=== PATIENT | female | born 1950 | race Caucasian/White ===

== ENCOUNTER 2018-08-31 18:07 | Emergency (ER) | payer MEDICARE ==
[2018-08-31 21:20] LABS: ABS Basophils 0 10^3/ul (0-0.2); ABS Eosinophils 0 10^3/ul (0-0.6); ABS Lymphocytes 0.7 10^3/ul (1.0-4.8); ABS Monocytes 0.2 10^3/ul (0-0.8); ABS Neutrophils 9.1 10^3/ul (1.5-7.7); ABS Nucleated RBC 0 10^3/ul; Eosinophil % 0 % (0-6); Hematocrit 43 % (35-47); Hemoglobin 14.5 g/dl (12.0-16.0); Lymphocyte % 6.6 % (25-47); Mean Corpuscular HGB Conc 34 g/dl (31-36); Mean Corpuscular Hemoglobin 34 pg (27-31); Mean Corpuscular Volume 99 fL (80-97); Mean Platelet Volume 9.3 um3 (7.4-10.4); Nucleated Red Blood Cells % 0; Platelet Count 259 10^3/ul (150-450); Red Blood Count 4.31 10^6/ul (4.00-5.40); Red Cell Distribution Width 13 % (10.5-15); White Blood Count 10.1 10^3/ul (3.5-10.8)
[2018-08-31] MEDS ORDERED: Acetaminophen TAB* 325 MG PO ONE (21:37)
[2018-08-31] MEDS ORDERED: NS 0.9% 1000 ML* 2,000 ML IV ONE (21:37)
[2018-08-31] MEDS ORDERED: Ondansetron INJ* 2 MG/ML VIAL IV ONE (21:39)
--- NOTE | 2018-08-31 21:57 | ED ---
Abdominal Pain/Female - HPI Summary HPI Summary: A 68 y/o female accompanied by her presents to ED c/o abdominal pain reaching 8/10 in severity. In the ED room, the patient has a pulse of 80 BPM, O2 saturation of 100% and blood pressure of 144/58. As per triage, "Pt reports RLQ abdominal pain that started this morning. Pt reports nausea and vomiting today as well. Pt denies pain with urination. Pt reports chills at home". According to the patient, she has been experiencing abdominal pain that was across her stomach since the morning, however, as the day karlie ton, it was localized at the RUQ. Additional symptoms include vomiting, however, denies any fever, back pain or urinary issues. Furthermore, she feels dizzy when she stands up. She noted that movement and drinking water aggravates the symptoms. No prior abdominal surgeries. No current medications. No PCP or seen at hospital for last 10 years. Patient ate breakfast, nothing rest of the day. Only wants Tylenol. - History of Current Complaint Chief Complaint: EDAbdPain Stated Complaint: ABD PAIN/VOMITING Time Seen by Provider: 08/31/18 21:07 Hx Obtained From: Patient Onset/Duration: Sudden Onset, Lasting Hours, Still Present Timing: Constant Severity Initially: Severe Severity Currently: Severe Pain Intensity: 10 Pain Scale Used: 0-10 Numeric Location: Discrete At: RUQ Radiates: No Aggravating Factor(s): Movement, Other: - Drinking water Alleviating Factor(s): Nothing Associated Signs and Symptoms: Positive: Dizzy, Decreased Appetite, Vomiting. Negative: Back Pain, Urinary Symptoms Allergies/Adverse Reactions: Allergies Allergy/AdvReac Type Severity Reaction Status Date / Time No Known Allergies Allergy Verified 08/31/18 18:31 Home Medications: Home Medications NK [No Home Medications Reported] 08/31/18 [History Confirmed 08/31/18] PMH/Surg Hx/FS Hx/Imm Hx Endocrine/Hematology History: Denies: Hx Diabetes Cardiovascular History: Denies: Hx Hypertension Respiratory History: Denies: Hx Asthma - Surgical History Surgery Procedure, Year, and Place: PER PATIENT, NO PRIOR SURGERIES NOTED Infectious Disease History: No Infectious Disease History: Denies: Traveled Outside the [place] in Last 30 Days - Family History Known Family History: Negative: Hypertension, Diabetes - Social History Alcohol Use: None Substance Use Type: Reports: None Smoking Status (MU): Never Smoked Tobacco Review of Systems Negative: Fever Positive: Abdominal Pain, Vomiting, Nausea, Other - POSITIVE: Appetite changes Positive: no symptoms reported Positive: Other - NEGATIVE: Back pain Neurological: Other - POSITIVE: Dizziness All Other Systems Reviewed And Are Negative: Yes Physical Exam - Summary Physical Exam Summary: VITAL SIGNS: Reviewed. GENERAL: Patient is a skinny female who is lying comfortable in the stretcher. Patient is not in any acute respiratory distress. Patient seems dry. HEAD AND FACE: No signs of trauma. No ecchymosis, hematomas or skull depressions. No sinus tenderness. EYES: PERRLA, EOMI x 2, No injected conjunctiva, no nystagmus. EARS: Hearing grossly intact. Ear canals and tympanic membranes are within normal limits. MOUTH: Oropharynx within normal limits. NECK: Supple, trachea is midline, no adenopathy, no JVD, no carotid bruit, no c- spine tenderness, neck with full ROM. CHEST: Symmetric, no tenderness at palpation LUNGS: Clear to auscultation bilaterally. No wheezing or crackles. CVS: Regular rate and rhythm, S1 and S2 present, no murmurs or gallops appreciated. ABDOMEN: Soft, RUQ tenderness. No signs of distention. No rebound no guarding, and no masses palpated. Bowel sounds are normal. EXTREMITIES: FROM in all major joints, no edema, no cyanosis or clubbing. NEURO: Alert and oriented x 3. No acute neurological deficits. Speech is normal and follows commands. SKIN: Dry and warm Triage Information Reviewed: Yes Vital Signs On Initial Exam: Initial Vitals Temp Pulse Resp BP Pulse Ox 99.0 F 78 18 133/57 100 08/31/18 18:28 08/31/18 18:28 08/31/18 18:28 08/31/18 18:28 08/31/18 18:28 Vital Signs Reviewed: Yes Diagnostics - Vital Signs Vital Signs Temp Pulse Resp BP Pulse Ox 08/31/18 21:17 79 100 08/31/18 21:16 75 144/58 100 08/31/18 20:49 99.6 F 73 15 122/49 100 08/31/18 18:28 99.0 F 78 18 133/57 100 - Laboratory Lab Results: Lab Results 10/10/18 10/10/18 10/10/18 Range/Units 21:09 21:09 21:09 WBC 10.1 (3.5-10.8) 10^3/ul RBC 4.31 (4.00-5.40) 10^6/ul Hgb 14.5 (12.0-16.0) g/dl Hct 43 (35-47) % MCV 99 H (80-97) fL MCH 34 H (27-31) pg MCHC 34 (31-36) g/dl RDW 13 (10.5-15) % Plt Count 259 (150-450) 10^3/ul MPV 9.3 (7.4-10.4) um3 Neut % (Auto) 90.7 H (38-83) % Lymph % (Auto) 6.6 L (25-47) % Bullitt % (Auto) 2.3 (0-7) % Eos % (Auto) 0 (0-6) % Baso % (Auto) 0.4 (0-2) % Absolute Neuts (auto) 9.1 H (1.5-7.7) 10^3/ul Absolute Lymphs (auto) 0.7 L (1.0-4.8) 10^3/ul Absolute Monos (auto) 0.2 (0-0.8) 10^3/ul Absolute Eos (auto) 0 (0-0.6) 10^3/ul Absolute Basos (auto) 0 (0-0.2) 10^3/ul Absolute Nucleated RBC 0 10^3/ul Nucleated RBC % 0 Sodium 132 L (135-145) mmol/L Potassium 3.4 L (3.5-5.0) mmol/L Chloride 99 L (101-111) mmol/L Carbon Dioxide 23 (22-32) mmol/L Anion Gap 10 (2-11) mmol/L BUN 10 (6-24) mg/dL Creatinine 0.63 (0.51-0.95) mg/dL Est GFR ( Amer) 113.7 (>60) Est GFR (Non-Af Amer) 94.0 (>60) BUN/Creatinine Ratio 15.9 (8-20) Glucose 112 H (70-100) mg/dL Lactic Acid 1.4 (0.5-2.0) mmol/L Calcium 9.5 (8.6-10.3) mg/dL Total Bilirubin 0.80 (0.2-1.0) mg/dL AST 20 (13-39) U/L ALT 17 (7-52) U/L Alkaline Phosphatase 44 (34-104) U/L C-Reactive Protein 1.34 (<8.01) mg/L Total Protein 6.8 (6.4-8.9) g/dL Albumin 4.5 (3.2-5.2) g/dL Globulin 2.3 (2-4) g/dL Albumin/Globulin Ratio 2.0 (1-3) Lipase 32 (11.0-82.0) U/L Result Diagrams: 08/31/18 21:09 08/31/18 21:09 Lab Statement: Any lab studies that have been ordered have been reviewed, and results considered in the medical decision making process. - CT CT A/P CT Interpretation Completed By: Radiologist - 1. Large cystic lesion located in the pelvis. This raises the possibility of a serous or mucinous tumor of the ovary. Suggest ultrasound evaluation or the consideration of an MRI exam. 2. No evidence of bowel obstruction. No abnormal bowel wall thickening. Portions of the appendix is visualized and is normal in appearance. ED PHYSICIAN REVIEWED THIS RADIOLOGY REPORT. - Ultrasound No standard instances Ultrasound Interpretation Completed By: Radiologist - APPENDIX US: The appendix is not visualized. ED PHYSICIAN REVIEWED THIS RADIOLOGY REPORT. Re-Evaluation - Re-Evaluation First Eval Re-Evaluation Time: 00:05 Comment: US did not visualize appendix. Pt is reluctant to do CAT scan. Abdominal Pain Fem Course/Dx - Course Course Of Treatment: A 21 y/o male presents to ED s/p substance abuse. A US revealed the appendix is not visualized. A CT A/P revealed 1. Large cystic lesion located in the pelvis. This raises the possibility of a serous or mucinous tumor of the ovary. Suggest ultrasound evaluation or the consideration of an MRI exam. 2. No evidence of bowel obstruction. No abnormal bowel wall thickening. Portions of the appendix is visualized and is normal in appearance. In the ED course, the patient recieved Tylenol, Zofran, Klor on Er Tab, Indocin and IV fluids. Patient refused CAT scan and wants to start with a US. Patient only wants Tylenol for pain. Patient was reluctant to recieve IV fluids and antianemic medications. The patient later was reluctant for CAT scan. Patient will be discharged with a diagnosis of large ovarian cyst. Patient is to follow up with [facility] tomorrow. Patient is agreeable with this plan. - Diagnoses Provider Diagnoses: Ovarian cyst Discharge - Sign-Out/Discharge Documenting (check all that apply): Patient Departure - DISCHARGE - Discharge Plan Condition: Stable Disposition: HOME Patient Education Materials: Ovarian Cyst (ED) Additional Instructions: FOLLOW UP WITH [facility] TOMORROW RETURN TO ED FOR ANY NEW OR WORSENING SYMPTOMS. - Attestation Statements Document Initiated by Scribe: Yes Documenting Scribe: Shawn Qureshi Provider For Whom Scribe is Documenting (Include Credential): Vivienne Islas MD Scribe Attestation: Shawn Van, scribed for Vivienne Islas MD on 09/01/18 at 0421.
[2018-08-31 22:24] LABS: Urine Appearance Clear; Urine Blood Negative (Negative); Urine Color Yellow; Urine Ketones 2+ (Negative); Urine Protein Negative (Negative); Urine Red Blood Cell 1+(3-5/hpf) (Absent); Urine Specific Gravity 1.019 (1.010-1.030); Urine Urobilinogen Negative (Negative); Urine White Blood Cell Trace(0-5/hpf) (Absent)
--- NOTE | 2018-08-31 23:08 | RAD ---
EXAM: US Abdomen Limited, Appendix CLINICAL HISTORY: 68 years old, female; Pain; Other: Rlq; Additional info: Apendicitis TECHNIQUE: Real-time ultrasound of the right lower quadrant with image documentation. COMPARISON: No relevant prior studies available. FINDINGS: Limitations: Study is limited due to distended bladder. Appendix: The appendix is not visualized. No right lower quadrant mass is visualized. Free fluid: No free fluid. IMPRESSION: The appendix is not visualized. To contact [facility] with a general question: Operations Center - [phone] For direct physician to physician contact: Physician Hotline - [phone] [facility] ([facility] Facility ID #[id number])
[2018-08-31] MEDS ORDERED: Potassium Chlor TAB* 20 MEQ TAB.ER PO ONE (23:59)
[2018-09-01] MEDS ORDERED: Indomethacin CAP* 50 MG PO ONE (00:04)
--- NOTE | 2018-09-01 04:04 | RAD ---
EXAM: CT Abdomen and Pelvis Without Intravenous Contrast CLINICAL HISTORY: 68 years old, female; Pain; Abdominal pain; Generalized; Patient HX: Pt refused iv contrast; Additional info: Abd pain rlq TECHNIQUE: Axial computed tomography images of the abdomen and pelvis without intravenous contrast. All CT scans at this facility use at least one of these dose optimization techniques: automated exposure control; mA and/or kV adjustment per patient size (includes targeted exams where dose is matched to clinical indication); or iterative reconstruction. Coronal and sagittal reformatted images were created and reviewed. COMPARISON: APPENDIX US APPENDIX 08/31/2018 10:16 PM FINDINGS: Lung bases: Linear opacities located in the lung bases. These may represent areas of atelectasis and/or scarring. ABDOMEN: Liver: The liver is of normal size and appearance. 7 mm hypodense lesion located in left lobe of the liver. This has a density of approximately 22 Hounsfield units. This may represent a cyst. Gallbladder and bile ducts: Unremarkable. No calcified stones. No ductal dilation. Pancreas: Unremarkable. No ductal dilation. Spleen: The spleen is of normal size and appearance. Adrenals: Hyperplasia of the adrenal glands. Kidneys and ureters: The kidneys are of normal size and appearance. No hydronephrosis or nephrolithiasis. Focal cortical defect involving the anterior inferior aspect of the right kidney consistent with a cortical cyst measuring 1 cm in greatest dimension. Stomach and bowel: No bowel obstruction. No abnormal bowel wall thickening. PELVIS: Appendix: Portions of the appendix is visualized and is normal in appearance. Bladder: Marked distention of the bladder filled with urine. No bladder wall thickening. No calcified stone within the bladder. Reproductive: Unremarkable as visualized. ABDOMEN and PELVIS: Intraperitoneal space: Cystic tumor located in the pelvis. This measures 14.5 cm in AP length, 16.2 cm in width and 9.7 cm in height. No apparent septations. No obvious tumor nodule involving the wall. No free air. No significant fluid collection. Bones/joints: No acute fracture. No dislocation. Soft tissues: Unremarkable. Vasculature: Calcification of the wall of the abdominal aorta and iliac arteries. No aneurysmal dilatation. Lymph nodes: Unremarkable. No enlarged lymph nodes. IMPRESSION: 1. Large cystic lesion located in the pelvis. This raises the possibility of a serous or mucinous tumor of the ovary. Suggest ultrasound evaluation or the consideration of an MRI exam. 2. No evidence of bowel obstruction. No abnormal bowel wall thickening. Portions of the appendix is visualized and is normal in appearance. To contact [facility] with a general question: Operations Center - [phone] For direct physician to physician contact: Physician Hotline - [phone] [facility] ([facility] Facility ID #[id number])
[2018-09-01 04:31] VITALS: BP 131/61
== END 2018-09-01 04:45 | disposition home or self-care (01) ==
LOC: ED 18:07
DX: N83.209 Unspecified ovarian cyst, unspecified side (principal); R42 Dizziness and giddiness; R10.11 Right upper quadrant pain; R11.2 Nausea with vomiting, unspecified
CPT/HCPCS: 36415; 74176; 76705; 80053; 81003; 81015; 83605; 83690; 85025; 86140; 87086; 96374; 99284; A9270-GY; J2405